=== PATIENT | male | born 1985 | race Caucasian/White ===

== ENCOUNTER 2017-07-16 14:36 | Emergency (ER) | payer OTHER, SELFPAY ==
[2017-07-16] MEDS ORDERED: TETANUS & DIPHTHERIA TOX,ADULT 0.5 ML VIAL ONE (15:43)
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
== END 2017-07-16 17:51 | disposition home or self-care (01) ==
LOC: ER 14:36
DX: M79.1 Myalgia (principal); V94.89XA Other water transport accident, initial encounter; R01.1 Cardiac murmur, unspecified
CPT/HCPCS: 71046; 90714; 99283

== ENCOUNTER 2021-12-18 16:56 | Emergency (ER) | payer SELFPAY ==
--- OUTSIDE RECORDS SUMMARY | 2021-12-18 17:00 | XMS REPORT | Continuity of Care Document ---
:1985 Author Organization [facility] t Address [address] [place] [address] 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, Virginie Foster Attending Clinician Payers Payer Name Policy Type Policy Number Effective Date Expiration Date Ese pagan [facility] [id number] [facility] 00:00:00 Problems Condition Condition Condition Status Onset Resolution Last Treating Co mments Source Name Details Category Date Date Treatment Clinician Date Bipolar I Bipolar I Disease Active Uni vers disorder, disorder, - ity of most most 00:00: [place] recent recent 00 Medical episode episode Branch (or (or current) current) depressed, depressed, severe, severe, without without mention of mention of psychotic psychotic behavior behavior Cannabis Cannabis Disease Active Unive rs abuse, abuse, 11-03 ity of continuous [place] 00:[place] 00 [place] [facility] Allergies, Adverse Reactions, Alerts Allergy Allergy Status Severity Reaction(s) Onset Inactive Treating Comm ents Source Name Type Date Date Clinician NO KNOWN Drug Active Univers ALLERGIE Class ity of S [facility] Social History Social Habit Start Date Stop Date Quantity Comments Source Exposure to Not sure [facility] SARS-CoV-2 (event) Medica l Branch Sex Assigned At [birth year] [facility] 00:00:00 00:00:00 Medical Branch Smoking Status Start Date Stop Date Source Unknown if ever smoked [facility] Medications Ordered Filled Start Stop Current Ordering Indication Dosage Frequency Signature Comments Components Source Medication Medication Date Date Medication? Clinician (SIG) Name Name HYDROcodone 2020- No 1{tbl} 1 tablet, Univers -acetaminop 11-10 Oral, ity of hen (NORCO) 17:00: 16:00 [place]CE[place] 1 [place] 10-325 mg 00 :00 dose, On Medica l tablet 1 Mon Branch tablet 11/10/20 at 1200, Routine ibuprofen 2020- No 600mg 600 mg, Uni vers (IBU) 11-10 Oral, ity of tablet 600 17:00: 16:00 ONCE, 1 [place] as mg 00 :00 dose, On Medical Mon Branch 11/10/20 at 1200, MARIA LUISA HYDROcodone 2020- No 1{tbl} 1 tablet, Univers -acetaminop 11-10 Oral, ity of hen (NORCO) 17:00: 16:00 [place]CE[place] 1 [place] 10-325 mg 00 :00 dose, On Medica l tablet 1 [facility] Branch tablet 11/10/20 at 1200, Routine ibuprofen No 600mg 600 mg, Uni vers (IBU) 11-10 Oral, ity of tablet 600 17:00: 16:00 ONCE, 1 [place] as mg 00 :00 dose, On Medical [facility] 11/10/20 at 1200, MARIA LUISA traMADoL 50 2020- No [id number] 50mg Take 1 Uni vers mg tablet 11-10 tablet by ity of 00:00: 04:59 mouth [place] 00 :00 every 6 Medical (six) Branch hours as needed for Pain (scale 4-6) for up to 7 days. Indication s: acute pain traMADoL 50 2020- No 4647 50mg Take 1 Uni vers mg tablet 11-10 tablet by ity of 00:00: 04:59 mouth [place] 00 :00 every 6 Medical (six) Branch hours as needed for Pain (scale 4-6) for up to 7 days. Indication s: acute pain cephALEXin 2020- No [id number] 250mg Take 1 Univers 250 mg 11-10 capsule by ity of capsule 00:00: 04:59 mouth [place] 00 :00 every 6 Medical (six) Branch hours for 5 days. cephALEXin 2020- No [id number] 250mg Take 1 Univers 250 mg 11-10 capsule by ity of capsule 00:00: 04:59 mouth [place] 00 :00 every 6 Medical (six) Branch hours for 5 days. TRAZODONE Yes 1 Tab Oral Un carlee 50 MG ORAL 9-13 QHSPRN, ity of TAB 00:00: MAY REPEAT [place] 00 X 1 Medical Branch LITHIUM Yes 1 Cap Oral Univ ers CARBONATE 9-13 BID ity of 300 MG ORAL 00:00: [place] CAP 00 Medical Branch TRAZODONE Yes 1 Tab Oral Un carlee 50 MG ORAL 9-13 QHSPRN, ity of TAB 00:00: MAY REPEAT [place] 00 X 1 Medical Branch LITHIUM Yes 1 Cap Oral Univ ers CARBONATE 9-13 BID ity of 300 MG ORAL 00:00: [facility] 00 [facility] Immunizations Ordered Filled Immunization Date Status Comments Ron e Immunization Name Name Td 2020-11-10 Completed University of 00:00:00 [facility] Td 2020-11-10 Completed [facility] 00:00:00 [facility] Vital Signs Vital Name Observation Time Observation Value Comments Source Systolic blood 2020-11-10 14:37:00 101 mm[facility]Hg[facility] Diastolic blood 2020-11-10 14:37:00 65 mm[facility]Hg[facility] 2020-11-10 14:37:00 63 /min General acute hospital Body temperature 2020-11-10 14:37:00 36.94 [facility] Respiratory rate 2020-11-10 14:37:00 18 /min [facility] Body weight 2020-11-10 14:37:00 63.504 kg General acute hospital BMI 2020-11-10 14:37:00 21.92 kg/m2 General acute hospital Oxygen saturation in 2020-11-10 14:37:00 100 /min [facility] Arterial blood by [facility] Pulse oximetry Branch Procedures Procedure Date / Time Performed Performing Clinician Doug tran ED LACERATION REPAIR 2020-11-10 16:35:[address] [facility] KNEE <3 VW LEFT 2020-11-10 15:31:17 [facility] NOTICE OF PRIVACY 2020-11-10 14:28:52 Doctor Unassigned, No Univ [facility] PRACTICES Name Medical Branch CONSENT/REFUSAL FOR 2020-11-10 14:28:40 [facility] Branch TREATMENT Encounters Start End Encounter Admission Attending Care Care Encounter Source Date/Time Date/Time Type Type Clinicians Facility Department ID 2020-11-10 2020-11-10 Emergency Matt [facility] [id number] [facility] 09:39:00 12:33:00 Virginie Mcdonald [id number] ity [facility] [id number] [facility] [id number] [facility] 084 Branch 2020-11-10 2020-11-10 Emergency X [facility] ERT [id number] Univers 09:25:00 09:25:00 ity [facility] Results This patient has no known results.
--- NOTE | 2021-12-18 17:51 | ER ---
Nurse's Notes [facility] Name: Evelyn Reed Jr Age: 36 yrs Sex: Male : 1985 Arrival Date: 12/18/2021 Time: 17:01 Bed Waiting Private MD: Diagnosis: Presentation: 12/18 17:48 Chief complaint: Called from lobby x3. No response. kb3 ED Course: 17:01 Patient arrived in ED. as 17:03 Ramon Byrd PA is PHCP. cp 17:03 Dane Sepulveda DO is Attending Physician. cp Administered Medications: No medications were administered Outcome: 17:51 Patient left the ED. [id number] Signatures: Briana Cedeño as Ramon Byrd PA PA cp Leal, Jahala, RN RN jl7 Raven Rodriguez RN RN [id number]
== END 2021-12-18 17:51 | disposition left against medical advice (07) ==
LOC: ER 16:56
DX: Z53.21 Procedure and treatment not carried out due to patient leaving prior to being seen by health care provider (principal)
CPT/HCPCS: 99281

== ENCOUNTER 2022-08-05 13:24 | Emergency (ER) | payer SELFPAY ==
--- OUTSIDE RECORDS SUMMARY | 2022-08-05 13:28 | XMS REPORT | Continuity of Care Document ---
:1985 Author Organization Formerly [facility] t Address [address] [place] [address] [place] [id number] Care Team Providers Name Role Phone PCP, PATIENT DOES NOT HAVE A Primary Care Physician Unavaila KRUNAL Gibbons Attending Clinician Unavailable Jaylon SALAZAR, Kruanl Bautista Attending Clinician Matt FULTON, Virginie Foster Attending Clinician KRUNAL IYER Admitting Clinician Unavailable Payers Payer Name Policy Type Policy Number Effective Date Expiration Date Ese pagan [facility] [id number] [id number] LONG TERM 00:00:00 Problems Condition Condition Condition Status Onset Resolution Last Treating Co mments Source Name Details Category Date Date Treatment Clinician Date Bipolar I Bipolar I Disease Active Uni vers disorder, disorder, 9- ity of most most 00:00: [place] recent recent 00 Medical episode episode Branch (or (or current) current) depressed, depressed, severe, severe, without without mention of mention of psychotic psychotic behavior behavior Cannabis Cannabis Disease Active Unive rs abuse, abuse, - [place] 00 [place] Allergies, Adverse Reactions, Alerts Allergy Allergy Status Severity Reaction(s) Onset Inactive Treating Comm ents Source Name Type Date Date Clinician NO KNOWN Drug Active Univers ALLERGIE Class ity of S [facility] Social History Social Habit Start Date Stop Date Quantity Comments Source Exposure to 2021-12-08 2021-12-18 Not sure [facility] SARS-CoV-2 (event) 00:00:00 17:52:00 Medica l Branch Sex Assigned At [birth year] [facility] y of [place] 00:00:00 00:00:00 Medical Branch Smoking Status Start Date Stop Date Source Tobacco smoking consumption [facility] Medical unknown Branch Medications Ordered Filled Start Stop Current Ordering Indication Dosage Frequency Signature Comments Components Source Medication Medication Date Date Medication? Clinician (SIG) Name Name tamsulosin 2021-02 Yes [id number] .4mg Take 1 Univers 0.4 mg 24 0-28 capsule by ity of hr capsule 00:00: mouth at [place] 00 bedtime. Medical Branch amoxicillin 2021-02- No [id number] 1{tbl} Take 1 Univers -clavulanat 0-28 11-08 tablet by it y of e 875-125 00:00: 05:59 mouth [place] mg per 00 :00 every 12 Medical tablet (twelve) Branch hours for 10 days. HYDROcodone 2020- No 1{tbl} 1 tablet, Univers -acetaminop 11-10 Oral, ity of hen (NORCO) 17:00: 16:00 [place]CE[place] 1 [place] 10-325 mg 00 :00 dose, On Medica l tablet 1 [facility] Branch tablet 11/10/20 at 1200, Routine ibuprofen No 600mg 600 mg, Uni vers (IBU) 11-10 Oral, ity of tablet 600 17:00: 16:00 ONCE, 1 [place] mg 00 :00 dose, On Medical [facility] Branch 11/10/20 at 1200, MARIA LUISA HYDROcodone [...] as mg 00 :00 dose, On Medical [facility] Branch 11/10/20 at 1200, MARIA LUISA traMADoL 50 2020- No 4647 50mg Take 1 Uni vers mg tablet 9-20 09-28 tablet by ity of 00:00: 04:59 mouth [...] Indication s: acute pain cephALEXin 2020- No [id number] 250mg Take 1 Univers 250 mg 11-10 capsule by ity of capsule 00:00: 04:59 mouth [place] 00 :00 every 6 Medical (six) Branch hours for 5 days. cephALEXin 2020- No [id number] 250mg Take 1 Univers 250 mg 11-10 capsule by ity of capsule 00:00: 04:59 mouth [place] 00 :00 every 6 Medical (six) Branch hours for 5 days. TRAZODONE 2007-0 Yes 1 Tab Oral Un carlee 50 MG ORAL 9-13 QHSPRN, ity of TAB 00:00: MAY REPEAT [place] 00 X 1 Medical Branch LITHIUM 2006-0 Yes 1 Cap Oral Univ ers CARBONATE 9-13 BID ity of 300 MG ORAL 00:00: [place] CAP 00 Medical Branch TRAZODONE 2006-0 Yes 1 Tab Oral Un carlee 50 MG ORAL 9-13 QHSPRN, ity of TAB 00:00: MAY REPEAT [place] 00 X 1 [facility] LITHIUM 2006-0 Yes 1 Cap Oral Univ ers CARBONATE 9-13 BID ity of 300 MG ORAL 00:00: [place] CAP 00 [facility] TRAZODONE 2006-0 Yes 1 Tab Oral Un carlee 50 MG ORAL 9-13 QHSPRN, ity of TAB 00:00: MAY REPEAT [place] 00 X 1 [facility] LITHIUM 2006-0 Yes 1 Cap Oral Univ ers CARBONATE 9-13 BID ity of 300 MG ORAL 00:00: [place] CAP 00 [facility] Immunizations Ordered Filled Immunization Date Status Comments [facility] e Immunization Name Name Td 2020-11-10 Completed University of 00:00:00 [facility] Td 2020-11-10 Completed University of 00:00:00 [facility] Td 2020-11-10 Completed University of 00:00:00 [facility] Vital Signs Vital Name Observation Time Observation Value Comments Source Systolic blood 2021-12-19 01:00:00 138 mm[Hg] Univer sity of pressure [facility] Diastolic blood 2021-12-19 01:00:00 102 mm[Hg] Unive rsity of pressure [facility] Heart rate 2021-12-19 01:00:00 87 /min Universi ty of [facility] Respiratory rate 2021-12-19 01:00:00 18 /min Univ ersity of [facility] Oxygen saturation in 2021-12-19 01:00:00 100 /min University of Arterial blood by [place] SHARKMARX cinthya Pulse oximetry Branch Body temperature 2021-12-18 22:53:00 37 Kourtney [facility] ersity of [facility] Body height 2021-12-18 22:53:00 165.1 cm Universi ty of [facility] Body weight 2021-12-18 22:53:00 63.504 kg Universi ty of [facility] BMI 2021-12-18 22:53:00 23.30 kg/m2 Universi ty [facility] Systolic blood 2020-11-10 14:37:00 101 mm[Hg] Univer sity of pressure [facility] Diastolic blood 2020-11-10 14:37:00 65 mm[Hg] Unive rsity of [facility] Heart rate 2020-11-10 14:37:00 63 /min Universi ty of [facility] Body temperature 2020-11-10 14:37:00 36.94 Kourtney [facility] ersity of [facility] Respiratory rate 2020-11-10 14:37:00 18 /min Univ ersity of [facility] Body weight 2020-11-10 14:37:00 63.504 kg Universi ty of [facility] BMI 2020-11-10 14:37:00 21.92 kg/m2 Universi ty [facility] Oxygen saturation in 2020-11-10 14:37:00 100 /min University of Arterial blood by [place] SHARKMARX cinthya Pulse oximetry Branch Procedures Procedure Date / Time Performed Performing Clinician Doug tran CT ABDOMEN PELVIS WO 2021-12-19 00:33:06 Krunal Iyer [facility] ity of [facility] BASIC METABOLIC PANEL 2021-12-19 00:25:00 Krunal Iyer [facility] (NA, K, CL, CO2, Medical Branch GLUCOSE, BUN, CREATININE, CA) CBC WITH DIFF 2021-12-19 00:25:00 Krunal Iyer [facility] URINALYSIS 2021-12-18 23:12:00 Krunal Iyer [facility] CONSENT/REFUSAL FOR 2021-12-18 22:47:49 Doctor Unassigned, No Un iversity of [place] DIAGNOSIS AND Name [facility] TREATMENT ED LACERATION REPAIR 2020-11-10 16:35:[address] [facility] XR KNEE <3 VW LEFT 2020-11-10 15:31:17 Virginie Gutierrez [facility] NOTICE OF PRIVACY 2020-11-10 14:28:52 Doctor Unassigned, No Univ [facility] Name [facility] CONSENT/REFUSAL FOR 2020-11-10 14:28:40 [facility] Name [facility] TREATMENT Encounters Start End Encounter Admission Attending Care Care Encounter Source Date/Time Date/Time Type Type Clinicians Facility Department ID 2021-12-18 2021-12-18 [id number] Univers 17:57:00 20:41:00 KRUNAL [facility] 2021-12-18 2021-12-18 [facility] [id number] Univers 17:57:00 20:41:00 Krunal MCDONALD [id number] i ty of [place] [id number] [place] [facility] [id number] [place] [address] Branch 2020-11-10 2020-11-10 Emergency Matt [facility] [id number] Univers 09:39:00 12:33:00 Virginie Mcdonald [id number] ity of [place] [id number] [facility] [id number] [place] [id number] Branch 2020-11-10 2020-11-10 Emergency X [facility] ERT [id number] Univers 09:25:00 09:25:00 [facility] Results Test Description Test Time Test Comments Results Result Comments Source BASIC METABOLIC PANEL (NA, K, CL, CO2, GLUCOSE, BUN, 2021-11 00:56:09 CREATININE, CA) Test Item Value Reference Range Interpretation Comme nts NA (test code = 7514601332) 138 mmol/L 135-145 K (test code = 8720664092) 4.1 mmol/L 3.5-5.0 CL (test code = 1953281157) 105 mmol/L 98-108 CO2 TOTAL (test code = 28 mmol/L 23-31 5183124904) AGAP (test code = 9591958924) 2-16 BUN (test code = 2272134958) 13 mg/dL 7-23 GLUCOSE (test code = 4819819662) 90 mg/dL 70-110 CREATININE (test code = 0.85 mg/dL 0.60-1.25 9668392882) CALCIUM (test code = 6528685119) 9.3 mg/dL 8.6-10.6 eGFR (test code = 3852664219) mL/min/1.73m2 JOHANNY (test code = JOHANNY) Association of Glomerular Filtration Rate (GFR) and Staging of Kidney Disease* + +--------- + ----+| GFR (mL/min/1.73 m2) ?| With Kidney Damage ?| ?Without Kidney Damage+ +--- + +| ?>90 ?| ?Stage one ?| ? Normal ?+ +-------- + -----+| ?60-89 ?| ?Stage two ?| ? Decreased GFR ? + +--------- + ----+| ?30-59 ?| ?Stage three ?| ? Stage three ? + +--------- + ----+| ?15-29 ?| ?Stage four ? | ? Stage four ?+ +-------- + -----+| ?<15 (or dialysis) ? ?| ?Stage five ? | ? Stage five ?+ +-------- + -----+ *Each stage assumes the associated GFR level has been in effect for at least three months. ?Stages 1 to 5, with or without kidney disease, indicate chronic kidney disease. Notes: Determination of stages one and two (with eGFR >59mL/min/1.73 m2) requires estimation of kidney damage for at least three months as defined by structural or functional abnormalities of the kidney, manifested by either:Pathological abnormalities or Markers of kidney damage (including abnormalities in the composition of the blood or urine or abnormalities in imaging tests). [facility] WITH [id number] 00:45:25 Test Item Value Reference Range Interpretation Comments WBC (test code = See_Comment H [Automated 6690-2) message] The system which generated this result transmit roly reference range : 4.20 - 10.70 10*3/?L. The reference range was not used to interpret this result as normal/abnormal . RBC (test code = See_Comment [Automated 789-8) message] The system which generated this result transmit roly reference range : 4.26 - 5.52 10*6/?L. The reference range was not used to interpret this result as normal/abnormal . HGB (test code = 14.8 g/dL 12.2-16.4 718-7) HCT (test code = 43.0 % 38.4-49.3 4544-3) MCV (test code = 83.8 fL 81.7-95.6 787-2) MCH (test code = 28.8 pg 26.1-32.7 785-6) MCHC (test code = 34.4 g/dL 31.2-35.0 786-4) RDW-SD (test code = 38.5 fL 38.5-51.6 17306-8) RDW-CV (test code = 12.6 % 12.1-15.4 788-0) PLT (test code = See_Comment [Automated 777-3) message] The system which generated this result transmit roly reference range : 150 - 328 10*3/ ?L. The reference range was not u sed to interpret th is result as normal/abnormal . MPV (test code = 9.2 fL 9.8-13.0 L 02265-8) NRBC/100 WBC (test See_Comment [Automat ed code = 1898476999) message] The system which generated this result transmit roly reference range : 0.0 - 10.0 /100 WBCs. The reference range was not used to interpret this result as normal/abnormal . NRBC x10^3 (test code See_Comment [Auto mated = 1653494557) message] The system which generated this result transmit roly reference range : 10*3/?L. The reference range was not used to interpret this result as normal/abnormal . GRAN MAT (NEUT) % 73.2 % (test code = 770-8) IMM GRAN % (test code 0.50 % = 7683928892) LYMPH % (test code = 16.5 % 736-9) MONO % (test code = 6.9 % 5905-5) EOS % (test code = 2.2 % 713-8) BASO % (test code = 0.7 % 706-2) GRAN MAT x10^3(ANC) 11.06 10*3/uL 1.99-6.95 H (test code = 7422664300) IMM GRAN x10^3 (test 0.07 10*3/uL 0.00-0.06 H code = 5015373006) LYMPH x10^3 (test code 2.49 10*3/uL 1.09-3.23 = 731-0) MONO x10^3 (test code 1.05 10*3/uL 0.36-1.02 H = 742-7) EOS x10^3 (test code = 0.34 10*3/uL 0.06-0.53 711-2) BASO x10^3 (test code 0.11 10*3/uL 0.01-0.09 H = 704-7) Lab Interpretation Abnormal (test code = 32507-5) [facility] [place] [facility]"
--- NOTE | 2022-08-05 13:57 | EDPHYS ---
Physician Documentation [facility] Name: Evelyn Reed Jr Age: 37 yrs Sex: Male : 1985 Arrival Date: 08/05/2022 Time: 13:24 Bed IW1 Private MD: ED Physician Phil Kimball HPI: 08/05 14:00 This 37 yrs old Male presents to ER via Ambulatory with complaints of Lip sore.snw 14:00 The patient presents with sore to upper lip. Onset: The symptoms/episode began/occurred snw 2 day(s) ago, and became persistent. Duration: The symptoms are continuous. The patient has not experienced similar symptoms in the past. It is unknown whether or not the patient has recently seen a physician. Historical: - Allergies: 13:32 No Known Allergies; ll1 - PMHx: 13:32 Heart Murmur; ll1 - PSHx: 13:32 L elbow SX; ll1 - Immunization history:: Client reports having NOT received the Covid vaccine. - Social history:: Smoking status: Patient denies any tobacco usage or history of. ROS: 13:59 Constitutional: Negative for fever, chills, and weight loss, Eyes: Negative for injury, snw pain, redness, and discharge, Neck: Negative for injury, pain, and swelling, Cardiovascular: Negative for chest pain, palpitations, and edema, Respiratory: Negative for shortness of breath, cough, wheezing, and pleuritic chest pain, Abdomen/GI: Negative for abdominal pain, nausea, vomiting, diarrhea, and constipation, Back: Negative for injury and pain, : Negative for injury, bleeding, discharge, and swelling, MS/Extremity: Negative for injury and deformity, Skin: Negative for injury, rash, and discoloration, Neuro: Negative for headache, weakness, numbness, tingling, and seizure, Psych: Negative for depression, anxiety, suicide ideation, homicidal ideation, and hallucinations. 13:59 ENT: Positive for sore to left upper lip. Exam: 13:58 Constitutional: This is a well developed, well nourished patient who is awake, alert, snw and in no acute distress. Head/Face: Normocephalic, atraumatic. Eyes: Pupils equal round and reactive to light, extra-ocular motions intact. Lids and lashes normal. Conjunctiva and sclera are non-icteric and not injected. Cornea within normal limits. Periorbital areas with no swelling, redness, or edema. Neck: Trachea midline, no thyromegaly or masses palpated, and no cervical lymphadenopathy. Supple, full range of motion without nuchal rigidity, or vertebral point tenderness. No Meningismus. Chest/axilla: Normal chest wall appearance and motion. Nontender with no deformity. No lesions are appreciated. Cardiovascular: Regular rate and rhythm with a normal S1 and S2. No gallops, murmurs, or rubs. Normal PMI, no JVD. No pulse deficits. Respiratory: Lungs have equal breath sounds bilaterally, clear to auscultation and percussion. No rales, rhonchi or wheezes noted. No increased work of breathing, no retractions or nasal flaring. Abdomen/GI: Soft, non-tender, with normal bowel sounds. No distension or tympany. No guarding or rebound. No evidence of tenderness throughout. Back: No spinal tenderness. No costovertebral tenderness. Full range of motion. Skin: Warm, dry with normal turgor. Normal color with no rashes, no lesions, and no evidence of cellulitis. MS/ Extremity: Pulses equal, no cyanosis. Neurovascular intact. Full, normal range of motion. Neuro: Awake and alert, GCS 15, oriented to person, place, time, and situation. Cranial nerves II-XII grossly intact. Motor strength 5/5 in all extremities. Sensory grossly intact. Cerebellar exam normal. Normal gait. Psych: Awake, alert, with orientation to person, place and time. Behavior, mood, and affect are within normal limits. 13:58 ENT: External ear(s): are unremarkable, Mouth: Lips: normal, shallow ulceration of upper left lip. Vital Signs: 13:31 BP 146 / 87; Pulse 89; Resp 16; Temp 99; Pulse Ox 100% ; Weight 65.77 kg; Height 5 ft. ll1 5 in. ; Pain 3/10; 13:31 Body Mass Index 24.13 (65.77 kg, 165.1 cm) ll1 13:31 Pain Scale: Adult ll1 MDM: 13:29 Patient medically screened. snw 13:59 Differential diagnosis: viral Infection, bacterial infection. Data reviewed: vital snw signs, nurses notes. I considered the following discharge prescriptions or medication management in the emergency department Medications were administered in the Emergency Department. See MAR. Special discussion: Based on the history and exam findings, there is no indication for further emergent testing or inpatient evaluation. I discussed with the patient/guardian the need to see the primary care provider for further evaluation of the symptoms. Administered Medications: 14:02 Drug: valACYclovir PO 1000 mg Route: PO; ll1 14:04 Follow up: Response: No adverse reaction ll1 14:02 Drug: predniSONE PO 20 mg Route: PO; ll1 14:04 Follow up: Response: No adverse reaction ll1 14:02 Drug: Famotidine PO 20 mg Route: PO; ll1 14:04 Follow up: Response: No adverse reaction ll1 Disposition Summary: 08/05/22 13:56 Discharge Ordered Location: Home snw Condition: Stable snw Diagnosis - Herpes labialis snw Followup: snw - With: Emergency Department - When: As needed - Reason: Worsening of condition Followup: snw - With: Private Physician - When: 2 - 3 days - Reason: Recheck today's complaints, Continuance of care, Re-evaluation by your physician Discharge Instructions: - Discharge Summary Sheet snw - Cold Sore snw Forms: - Medication Reconciliation Form snw - Thank You Letter snw - Antibiotic Education snw - Prescription Opioid Use snw Prescriptions: - Valtrex 1 gram Oral tablet - take 1 tablet by ORAL route daily for 1 day; 1 tablet; Refills: 0, Product snw Selection Permitted Signatures: Amy Ordaz FNP-C HEALTH PROFESSOR-[place] Joan Gomez RN RN ll1
--- NOTE | 2022-08-05 13:57 | ER ---
Nurse's Notes [facility] Name: Evelyn Reed Jr Age: 37 yrs Sex: Male : 1985 Arrival Date: 08/05/2022 Time: 13:24 Bed IW1 Private MD: Diagnosis: Herpes labialis Presentation: 08/05 13:31 Chief complaint: Patient states: Upper lip sore for 3 days. No cough or fever. ll1 wanted him to get checked. Coronavirus screen: Vaccine status: Patient reports being unvaccinated. Client denies travel out of the [place] in the last 14 days. At this time, the client does not indicate any symptoms associated with coronavirus-19. Ebola Screen: Patient denies travel to an Ebola-affected area in the 21 days before illness onset. Initial Sepsis Screen: Does the patient meet any 2 criteria? No. Patient's initial sepsis screen is negative. Does the patient have a suspected source of infection? Yes: Skin breakdown/wound. Risk Assessment: Do you want to hurt yourself or someone else? Patient reports no desire to harm self or others. Onset of symptoms was August 03, 2022. 13:31 Method Of Arrival: Ambulatory ll1 13:31 Acuity: DORA 4 ll1 Triage Assessment: 13:33 General: Appears uncomfortable, Behavior is calm, cooperative, appropriate for age. ll1 Pain: Complains of pain in upper lip Pain currently is 3 out of 10 on a pain scale. Quality of pain is described as aching. Derm: Reports pain, small sore upper lip. Historical: - Allergies: 13:32 No Known Allergies; ll1 - PMHx: 13:32 Heart Murmur; ll1 - PSHx: 13:32 L elbow SX; ll1 - Immunization history:: Client reports having NOT received the Covid vaccine. - Social history:: Smoking status: Patient denies any tobacco usage or history of. Screenin:03 [facility] ED Fall Risk Assessment (Adult) Score/Fall Risk Level 0 - 2 = Low Risk. Abuse ll1 screen: Denies threats or abuse. Nutritional screening: No deficits noted. Tuberculosis screening: No symptoms or risk factors identified. Assessment: 14:03 Reassessment: No changes from previously documented assessment. Patient and/or family ll1 updated on plan of care and expected duration. Pain level reassessed. Patient is alert, oriented x 3, equal unlabored respirations, skin warm/dry/pink. Vital Signs: 13:31 BP 146 / 87; Pulse 89; Resp 16; Temp 99; Pulse Ox 100% ; Weight 65.77 kg; Height 5 ft. ll1 5 in. ; Pain 3/10; 13:31 Body Mass Index 24.13 (65.77 kg, 165.1 cm) ll1 13:31 Pain Scale: Adult ll1 ED Course: 13:26 Patient arrived in ED. mr 13:27 Amy Ordaz [facility]NP[facility]C [facility] snw 13:27 Phil Kimball MD is Attending Physician. snw 13:32 Triage completed. ll1 13:32 Arm band placed on. ll1 14:03 Patient has correct armband on for positive identification. Bed in low position. Call ll1 light in reach. Side rails up X 1. Cardiac monitoring not applicable on this patient. 14:03 No provider procedures requiring assistance completed. Patient did not have IV access ll1 during this emergency room visit. Administered Medications: 14:02 Drug: valACYclovir PO 1000 mg Route: PO; ll1 14:04 Follow up: Response: No adverse reaction ll1 14:02 Drug: predniSONE PO 20 mg Route: PO; ll1 14:04 Follow up: Response: No adverse reaction ll1 14:02 Drug: Famotidine PO 20 mg Route: PO; ll1 14:04 Follow up: Response: No adverse reaction ll1 Medication: 14:03 VIS not applicable for this client. ll1 Outcome: 13:56 Discharge ordered by . snw 14:03 Discharged to home ambulatory. ll1 14:03 Condition: stable 14:03 Discharge instructions given to patient, Instructed on discharge instructions, follow up and referral plans. medication usage, Demonstrated understanding of instructions, follow-up care, medications, Prescriptions given X 1. 14:24 Patient left the ED. ll1 Signatures: Amy Ordaz FNP-C FNP-Jackie VamsiSandhya mr GomezJoan, RN RN ll1
[2022-08-05] MEDS ORDERED: FAMOTIDINE 20 MG TAB ONE (14:05)
[2022-08-05] MEDS ORDERED: predniSONE 20 MG TAB ONE (14:05)
[2022-08-05] MEDS ORDERED: VALACYCLOVIR 500 MG TAB ONE (14:06)
[2022-08-05 14:41] VITALS: BP 146/87; TEMP 99; O2SAT 100
== END 2022-08-05 14:24 | disposition home or self-care (01) ==
LOC: ER 13:24
DX: B00.1 Herpesviral vesicular dermatitis (principal)
CPT/HCPCS: 99283; J7512